=== PATIENT | male | born 1990 | race Caucasian/White ===

== ENCOUNTER 2017-01-12 21:54 | Emergency (ER) | payer OTHER ==
[~2017-01-12] VITALS: Ht 175.3 cm; Wt 65.8 kg
--- NOTE | ~2017-01-12 | CT71 ---
[facility] A Service [facility] RADIOLOGY TEXT RESULTS PATIENT: MUKESH KAMARA LOCATION: SED : 86 UNIT #: [id number] AGE: [address]: Myra Manzano MD SEX: M ORDER DR: [id number] [place] [id number] E MR#: [id number] Acc #: [id number] NAME: MUKESH KAMARA : 1990 SEX: M STUDY DATE/TIME: 01/12/2017 23:40 UNIT: SED ROOM: STUDY DESCRIPTION: CT Head Wo Contrast Attending Physician: Myra Manzano M.D. Ordering Physician: Myra Manzano M.D. MEDICAL IMAGING REPORT This report is preliminary unless electronic signature is present. EXAM CT head without contrast INDICATIONS Posterior head pain for the past week. PROCEDURE Unenhanced CT of the head. This CT exam was performed with one or more of the following radiation dose reduction techniques: Automatic exposure control, adjustment of mA and/or kV according to patient size, and iterative reconstruction. COMPARISON 07/10/2008 FINDINGS No acute hemorrhage, abnormal mass effect, extraaxial fluid collection or hydrocephalus. No depressed calvarial fracture. Paranasal sinuses and the mastoid air cells are clear. IMPRESSION No acute intracranial findings. Dictated by... Marck Wallace M.D. THIS IS AN ELECTRONICALLY VERIFIED REPORT Marck Wallace M.D. at 01/14/2017 9:57 PM EED/psc TD: 01/13/2017 11:41 [facility] A Service [facility] RADIOLOGY TEXT RESULTS PATIENT: MUKESH KAMARA LOCATION: SED : [birth year] UNIT #: [id number] AGE: [address]: Myra Manzano MD SEX: M ORDER DR: CHAD #: [id number] MEDICAL IMAGING REPORT Page 1 of 1
--- NOTE | ~2017-01-12 | EKG ---
PATIENT: MUKESH KAMARA UNIT #: [id number] Ventricular Rate: 73 BPM Atrial Rate: 73 BPM P-R Interval: 142 ms QRS Duration: 88 ms Q-T Interval: 400 ms QTC Calculation(Bezet): 440 ms P [place]: 74 degrees Calculated R [place]: 79 degrees Calculated T [place]: 68 degrees Diagnosis Line: Normal sinus rhythm Diagnosis Line: Right atrial enlargement Diagnosis Line: Borderline ECG Diagnosis Line: No previous ECGs available Diagnosis Line: Confirmed by LY WALLS MD ([id number]) on Diagnosis Line: 01/15/2017 10:41:40 AM INTERPRETING MD: TITI ERWIN
--- NOTE | ~2017-01-12 | CT2 ---
[facility] A Service of [facility] RADIOLOGY TEXT RESULTS PATIENT: MUKESH KAMARA LOCATION: SED : [birth year] UNIT #: [id number] AGE: [address]: Myra Manzano MD SEX: M ORDER DR: [id number] [place] [id number] E MR#: [id number] Acc #: [id number] NAME: MUKESH KAMARA : 1990 SEX: M STUDY DATE/TIME: 01/13/2017 3:16 UNIT: SED ROOM: STUDY DESCRIPTION: CT Abd and Pelv W Cont Attending Physician: Myra Manzano M.D. Ordering Physician: Myra Manzano M.D. MEDICAL IMAGING REPORT This report is preliminary unless electronic signature is present. EXAM CT abdomen and pelvis with contrast INDICATIONS Left lower quadrant abdominal pain nausea vomiting for the past week. PROCEDURE Contrast-enhanced CT of the abdomen and pelvis. This CT exam was performed with one or more of the following radiation dose reduction techniques: automatic control, adjustment of mA and/or kV according to patient size, and iterative reconstruction. COMPARISON None FINDINGS ABDOMEN WITH CONTRAST: Included lung bases are clear. The liver, spleen kidneys adrenal glands pancreas and gallbladder are unremarkable. The bowel loops are nondilated. Appendix is normal. PELVIS WITH CONTRAST: No pelvic mass or fluid. No aggressive appearing bone lesion. IMPRESSION 1. No acute findings in the abdomen or pelvis. 2. Normal appendix Dictated by... Marck Wallace M.D. [facility] A Service of [facility] RADIOLOGY TEXT RESULTS PATIENT: MUKESH KAMARA LOCATION: SED : [birth year] UNIT #: [id number] AGE: [address]: Myra Manzano MD SEX: M ORDER DR: THIS IS AN ELECTRONICALLY VERIFIED REPORT Marck Wallace M.D. at 01/14/2017 9:56 PM EED/rnr TD: 01/13/2017 12:38 JOB #: [id number] MEDICAL IMAGING REPORT Page 1 of 1
--- NOTE | ~2017-01-12 | CR72 ---
[facility]. [facility] A Service of [facility] & [facility] RADIOLOGY TEXT RESULTS PATIENT: MUKESH KAMARA LOCATION: SED : [birth year] UNIT #: [id number] AGE: [address]: Myra Manzano MD SEX: M ORDER DR: [id number] [place] [id number] E MR#: [id number] Acc #: [id number] NAME: MUKESH KAMARA : 1990 SEX: M STUDY DATE/TIME: 01/12/2017 23:10 UNIT: SED ROOM: STUDY DESCRIPTION: CR Chest Single View Portable Attending Physician: Myra Manzano M.D. Ordering Physician: Myra Manzano M.D. MEDICAL IMAGING REPORT This report is preliminary unless electronic signature is present. EXAM Portable chest INDICATIONS Vomiting and weakness today. PROCEDURE Frontal view chest. COMPARISON: 04/26/2012 FINDINGS Heart size normal. No dense consolidation, visible pleural fluid or pneumothorax. IMPRESSION No active process Dictated by... Marck Wallace M.D. THIS IS AN ELECTRONICALLY VERIFIED REPORT Marck Wallace M.D. at 01/14/2017 9:57 PM EED/alexey TD: 01/13/2017 10:37 JOB #: [id number] MEDICAL IMAGING REPORT Page 1 of 1
[~2017-01-12 21:54] MED LIST: ACETAMINOPHEN PO; ALBUTEROL17 GM INH; AMOXICILLIN PO; AUGMENTIN PO; DARVOCET-N 1001 TAB PO; MUCINEX DM1 TAB.SR . PO; VICODIN 5/500 T1 TAB PO; ZITHROMAX PO; ZOFRAN PO
[2017-01-12] MEDS ORDERED: SEROQUEL (22:29)
[2017-01-12] MEDS ORDERED: WELLBUTRIN (22:29)
[2017-01-13 00:05] LABS: BASOPHIL# 0.1 X10e3 (0-0.3); BASOPHIL% 0.4 % (0-2.5); EOSINOPHIL# 0.1 X10e3 (0-0.7); EOSINOPHIL% 0.6 % (0.0-7.0); HEMATOCRIT 47.6 % (38.0-50.0); HEMOGLOBIN 16.2 gm/dL (13.0-16.0); LYMPHOCYTE# 2.1 X10e3 (1.0-3.5); LYMPHOCYTE% 14.4 % (17.0-45.0); MEAN CELL VOLUME 90.5 FL (83-96); MEAN CORPUSCULAR HEMOGLOBIN 30.8 PG (28-34); MEAN CORPUSCULAR HGB CONC 34.1 g/dL (30-36); MEAN PLATELET VOLUME 7.8 FL (6.5-11.5); MONOCYTE# 1.2 X10e3 (0-1.0); MONOCYTE% 8.2 % (3.0-12.0); NEUTROPHIL# 11.2 X10e3 (1.5-7.1); NEUTROPHIL% 76.4 % (40-75); PLATELET COUNT 432 X10e3 (140-420); RED BLOOD COUNT 5.26 X10e (3.90-5.60); RED CELL DISTRIBUTION WIDTH 13.4 % (11.0-15.5); WHITE BLOOD COUNT 14.7 X10e3 (4.0-10.5)
[2017-01-13 00:06] LABS: DIFF IND NO
[2017-01-13 00:17] LABS: PROTHROMBIN TIME (PATIENT) 11.4 SECONDS (9.5-12.4)
[2017-01-13 00:23] LABS: ALBUMIN SERUM 5.8 g/dL (3.5-5.0); ALKALINE PHOSPHATASE 67 U/L (32-92); ALT (SGPT) 32 U/L (10-40); AST (SGOT) 33 U/L (10-42); BILIRUBIN, DIRECT 0.2 mg/dL (0.0-0.2); BILIRUBIN,INDIRECT 0.5 mg/dL (0.0-0.9); BILIRUBIN,TOTAL 0.7 mg/dL (0.2-2.0); BLOOD UREA NITROGEN 17 mg/dL (9-23); BUN/CREATININE RATIO 12.14; CARBON DIOXIDE 29 mmol/L (22-31); CHLORIDE 90 mmol/L (100-111); CREATININE SERUM 1.4 mg/dL (0.6-1.4); GLOM FILT RATE Estimated 67.9 mL/min (>60); GLUCOSE FASTING 140 mg/dL (70-110); POTASSIUM 3.6 mmol/L (3.5-5.1); PROTEIN TOTAL SERUM 9.5 g/dL (6.0-8.3); SALICYLATE <4.0 mg/dL; SODIUM 132 mmol/L (135-145)
[2017-01-13 00:25] LABS: ACETAMINOPHEN <10 ug/mL; ALCOHOL BLOOD <5 mg/dL (0)
[2017-01-13 01:25] LABS: URINE SOURCE CLEAN CATCH
[2017-01-13 01:27] LABS: URINE APPEARANCE CLEAR; URINE BLOOD NEG (NEG); URINE COLOR YELLOW; URINE GLUCOSE NEG (NORM); URINE KETONE NEG (NEG); URINE LEUKOCYTE ESTERASE NEG (NEG); URINE NITRATE NEG (NEG); URINE PH 5.5 (5-8); URINE PROTEIN TRACE (NEG); URINE SPECIFIC GRAVITY >=1.030 (1.003-1.035)
[2017-01-13 01:28] LABS: MICRO INDICATED? NO; URINE BILIRUBIN NEG (NEG)
[2017-01-13 01:39] LABS: AMPHETAMINE NEG (NEG); BARBITURATES NEG (NEG); BENZODIAZEPINES NEG (NEG); COCAINE NEG (NEG); MARIJUANA NEG (NEG); OPIATES POS (NEG); TRICYCLIC ANTIDEPRESSANTS POS (NEG); U METHADONE NEG (NEG)
== END 2017-01-13 04:06 | disposition home or self-care (01) ==
LOC: SED 21:54
PROVIDERS: Emergency Medicine
DX: R11.2 Nausea with vomiting, unspecified (principal); R19.7 Diarrhea, unspecified; F17.210 Nicotine dependence, cigarettes, uncomplicated; Z91.012 Allergy to eggs
CPT/HCPCS: 36415; 70450; 71010; 74177; 80048; 80076; 80307; 81003; 82140; 82947; 85025; 85610; 93005; 96361; 96374; 96375; 96376; 99285; C9113; G0480; J2405; Q9967